=== PATIENT | female | born 1965 | race Caucasian/White ===

== ENCOUNTER → 2016-12-09 | Outpatient (CLI) | payer OTHER ==
--- NOTE | 2016-12-09 12:01 | NM ---
EXAMINATION TYPE: NM thyroid image only DATE OF EXAM: 12/09/2016 11:33 AM COMPARISON: NONE HISTORY: Nodule TECHNIQUE: After the intravenous administration of 10.94 mCi Tc 99m Sodium Pertechnetate. Images obt ained 10 minutes post injection. FINDINGS: The right thyroid lobe appears to be enlarged. There is a focal cortical defect lower pole right thyr oid lobe. Ultrasound correlation is recommended and if there is a lesion in this region consider tiss ue diagnosis. The remainder of the thyroid lobes are heterogenous. Small warm nodule suggested within the upper pole of the left thyroid lobe. IMPRESSION: 1. I cannot exclude a cold nodule lower pole right thyroid lobe. See above.
== END | disposition home or self-care (01) ==
LOC: RADNMMAIN 10:28
PROVIDERS: ATTEND Surgery
DX: R22.0 Localized swelling, mass and lump, head (principal)
CPT/HCPCS: 78013; A9512

== ENCOUNTER 2016-12-16 12:03 | Outpatient (CLI) | payer OTHER ==
[2016-12-16 13:14] VITALS: RESP 14; TEMP 97.8
[2016-12-16 14:10] VITALS: BP 144/79; PULSE 62
--- NOTE | 2016-12-16 16:45 | US ---
EXAMINATION TYPE: US FNA thyroid DATE OF EXAM: 12/16/2016 2:04 PM COMPARISON: NONE HISTORY: Thyroid nodule., Abnormal nuclear medicine thyroid scan Maximal barrier technique was utilized. After informed consent, skin overlying the right lower pole nodule corresponding to the nuclear medicine finding was localized with ultrasound and the overlying skin prepped and draped. Ultrasound was utilized using sterile technique. Lidocaine was used for loca l anesthesia. Five passes with a 25-gauge needle were made into the nodule and aspirated specimen wa s submitted to cytology. Following the procedure hemostasis achieved. No immediate complication. T he patient discharged in stable condition. IMPRESSION: STATUS POST ULTRASOUND GUIDED FINE NEEDLE ASPIRATION OF THYROID NODULE, PATHOLOGY IS PEND ING. THIS PROCEDURE WAS PERFORMED BY THE UNDERSIGNED.
== END 2016-12-16 14:12 | disposition home or self-care (01) ==
LOC: RADPROMAIN 12:03
PROVIDERS: ATTEND Surgery
DX: E07.89 Other specified disorders of thyroid (principal)
CPT/HCPCS: 10022; 76942; 84439; 84443; 88173; 88305

== ENCOUNTER → 2018-01-06 | Outpatient (CLI) | payer OTHER ==
--- NOTE | 2018-01-07 13:53 | MM ---
Reason for exam: screening (asymptomatic). Last mammogram was performed 2 years and 9 months ago. History: Family history of breast cancer in paternal aunt. Physical Findings: A clinical breast exam by your physician is recommended on an annual basis and results should be correlated with mammographic findings. MG 3D Screening Mammo W/Cad Bilateral CC and MLO view(s) were taken. Prior study comparison: March 21, 2015, bilateral MG screening mammo w CAD. July 06, 2013, mammogram, performed at [facility]. There are scattered fibroglandular densities. No significant changes when compared with prior studies. ASSESSMENT: Negative, BI-RAD 1 RECOMMENDATION: Routine screening mammogram of both breasts in 1 year.
== END ==
LOC: RADMAMWWP 06:50
PROVIDERS: ATTEND Family Medicine
DX: Z12.31 Encounter for screening mammogram for malignant neoplasm of breast (principal)
CPT/HCPCS: 77063; 77067

== ENCOUNTER → 2018-03-31 | Outpatient (CLI) | payer OTHER ==
[2018-03-31 17:40] LABS: Rheumatoid Factor <4 IU/mL (0-15)
== END | disposition home or self-care (01) ==
LOC: LABWHC1 08:17
PROVIDERS: ATTEND Otolaryngology
DX: M19.90 Unspecified osteoarthritis, unspecified site (principal); R52 Pain, unspecified; R53.83 Other fatigue
CPT/HCPCS: 36415; 86038; 86431

== ENCOUNTER → 2018-11-29 | Outpatient (CLI) | payer OTHER ==
--- NOTE | 2018-11-29 15:22 | MR ---
EXAMINATION TYPE: MR brain and iac wo/w con DATE OF EXAM: 11/29/2018 COMPARISON: NONE HISTORY: 53-year-old female Left ear ache, headache TECHNIQUE: Multiplanar, multisequence images of the brain and brainstem were acquired before and aft er administration of 6 mL IV Gadavist. Diffusion weighted imaging was performed. Additional coned-d own sequences through the internal auditory canals and posterior cranial fossa before and after IV co ntrast administration. FINDINGS: Diffusion weighted images demonstrate no evidence of an acute ischemic lesion in the brain. T2/FLAIR weighted sequences show normal matter signal abnormality. Midline structures demonstrate partially empty sella but otherwise normal morphology. The craniocerv ical junction is normal. There is mild cerebral atrophy. The ventricles are of normal caliber. There is no evidence of an acute intracranial hemorrhage, infarct, mass, mass-effect or an extra-axia l fluid collection. There is no cerebellopontine angle mass. The right AICA forms a loop partially entering the right internal auditory canal. The internal audit ory canals are otherwise symmetric. Brainstem and skull base abnormalities are not seen. Post contrast images demonstrate no evidence of pathologic enhancement in the posterior cranial joselyn a or the internal auditory canals. There is no abnormal enhancement of the labyrinths. There is a 1.0 x 1.6 cm ovoid mildly T2 hyperintense lesion within the right parapharyngeal space, re dawn to axial T2 image 2 and 3. It seems to shows some mild uniform enhancement on postcontrast images measuring nearly 2.2 cm craniocaudal, refer to coronal postcontrast image 21, series 1003. Scattered mild mucosal thickening ethmoid air cells. Globes are intact. IMPRESSION: 1. No intracranial abnormality seen. 2. No specific abnormality on acoustic MRI. 3. An ovoid enhancing lesion measuring 2.2 x 1.6 x 1.0 cm in the right parapharyngeal space could rep resent an enlarged lymph node, varix, or a schwannoma. Correlate with contrast-enhanced CT soft tissu e neck to further evaluate.
== END | disposition home or self-care (01) ==
LOC: RADMRIMAIN 10:30
PROVIDERS: ATTEND Otolaryngology
DX: R51 Headache (principal); H93.3X2 Disorders of left acoustic nerve; H91.92 Unspecified hearing loss, left ear; H93.12 Tinnitus, left ear
CPT/HCPCS: 70553; A9585

== ENCOUNTER → 2018-12-08 | Outpatient (CLI) | payer OTHER ==
--- NOTE | 2018-12-16 14:24 | MR ---
MRI CERVICAL SPINE: CLINICAL HISTORY: Cervical radiculopathy per order. Headaches with neck pain for 3+ months per patien t. TECHNIQUE: Multiplanar, multisequence imaging of the cervical spine is performed without IV contrast. COMPARISON: Outside MRI cervical spine July 06, 2015. FINDINGS: Current exam is slightly suboptimal due to artifact degradation from motion. Sagittal image s of the cervical spine show the craniocervical junction to remain within normal limits. The cervica l and upper thoracic spinal cord is normal in course, caliber, and signal. There is slight grade 1 re trolisthesis of C5 on C6 seen better on current study versus prior study. Mild to moderate disc space narrowing at this level is more prominent from prior. Otherwise the vertebral body and intravertebra l disk heights are normal. Small posterior disc herniations are effacing anterior thecal sac C5-C6 an d C6-C7 level on sagittal images. The bone marrow signal intensity is within normal limits. No suspi cious new spurring is seen. Axial images show the C2-C3 and C3-C4 levels to remain within normal limits. Axial images at C4-C5 level redemonstrate tiny central disc protrusion mildly effacing anterior theca l sac on axial image 30, bilateral neural foramina are patent. No significant change from prior. Axial images at C5-C6 level show spondylolisthesis and broad-based posterior disc protrusion with rig ht paracentral prominence axial image 22 effacing anterior thecal sac nearly up to ventral surface of spinal cord with mild right greater than left bilateral neural foraminal narrowing. Slight progressi on from prior mostly on basis of spondylolisthesis. Axial images at C6-C7 level show focal right paracentral disc protrusion near axial image 17 effacing anterior thecal sac, bilateral neural foramina are patent. Axial images at C7-T1 level are felt within normal limits. Right thyroid lobe is not visualized and may be congenitally or surgically absent. There is heterogen eity of left thyroid lobe with few small nodules, largest measures 4 to 5 mm centrally axial image 5. CT neck performed December 14 while waiting for outside comparison show similar finding absent right thyroid lobe and small central nodule left thyroid lobe. IMPRESSION: Multilevel degenerative changes worse at C5-C6 level with some progression from prior MRI noted as detailed above.
== END | disposition home or self-care (01) ==
LOC: RADMRIMAIN 06:59
PROVIDERS: ATTEND Orthopaedic Surgery
DX: M47.22 Other spondylosis with radiculopathy, cervical region (principal)
CPT/HCPCS: 72141

== ENCOUNTER → 2018-12-14 | Outpatient (CLI) | payer OTHER ==
--- NOTE | 2018-12-14 09:27 | CT ---
EXAMINATION TYPE: CT soft tissue neck w con DATE OF EXAM: 12/14/2018 9:03 AM COMPARISON: 07/05/2015 HISTORY: Right parapharyngeal , see MRI report. Right neck and head pain CT DLP: 308.3 mGycm Automated exposure control for dose reduction was used. CONTRAST: CT scan of the neck is performed following with IV Contrast, patient injected with 100 mL of Isovue 3 00. Axial images are obtained, coronal and sagittal reformatted images are reviewed. FINDINGS: There is a subcentimeter left thyroid nodule. Right lobe of thyroid is not seen. Lung apices are clear. Within the carotid space bilaterally there is evidence of adenopathy measuring short axis of 1 cm the left measuring shortness axis of less than 1 cm on the right. Additionally on the right there is a 1 cm short axis measurement soft tissue nodule in the right parapharyngeal space most likely related t o a large lymph node. Submandibular and parotid glands have a normal appearance. Intraorbital structures are symmetric. Cranial structures have a normal appearance. Oropharynx and nasopharynx are seen. Focal cords have a normal appearance. Hypertrophic and degenerative disc disease noted particularly at levels C5-C6. IMPRESSION: 1. Severe degenerative disc disease C5-C6. A calcified or ossified spur paracentrally to the right li om results in some mass effect upon the spinal canal and thecal sac. 2. Adenopathy left carotid space short axis measurement of 1 cm. Additional soft tissue nodule right parapharyngeal space measuring short axis of 1 cm also suggestive of adenopathy. The right parapharyn geal suspected lymphadenopathy appears to be retrospectively noted on the CT scan of 07/05/2015. 3. Subcentimeter left thyroid nodule. Right lobe of thyroid not visualized correlate clinically.
== END | disposition home or self-care (01) ==
LOC: RADCTMAIN 08:04
PROVIDERS: ATTEND Otolaryngology
DX: M50.322 Other cervical disc degeneration at C5-C6 level (principal); R59.0 Localized enlarged lymph nodes; J39.2 Other diseases of pharynx; E04.1 Nontoxic single thyroid nodule
CPT/HCPCS: 70491; Q9967

== ENCOUNTER → 2019-01-17 | Outpatient (CLI) | payer OTHER ==
--- NOTE | 2019-01-18 09:26 | MM ---
Reason for exam: screening (asymptomatic). Last mammogram was performed 1 year ago. History: Patient is postmenopausal. Family history of breast cancer in paternal aunt. Physical Findings: A clinical breast exam by your physician is recommended on an annual basis and results should be correlated with mammographic findings. MG 3D Screening Mammo W/Cad Bilateral CC and MLO view(s) were taken. Prior study comparison: January 06, 2018, bilateral MG 3d screening mammo w/cad. March 21, 2015, bilateral MG screening mammo w CAD. The breast tissue is heterogeneously dense. This may lower the sensitivity of mammography. There are benign appearing round dystrophic calcifications bilaterally. There is no discrete abnormality. ASSESSMENT: Negative, BI-RAD 1 RECOMMENDATION: Routine screening mammogram of both breasts in 1 year.
== END | disposition home or self-care (01) ==
LOC: RADMAMWWP 09:41
PROVIDERS: ATTEND Family Medicine
DX: Z12.31 Encounter for screening mammogram for malignant neoplasm of breast (principal)
CPT/HCPCS: 77063; 77067

== ENCOUNTER 2019-03-21 09:32 | Day surgery (SDC) | payer OTHER ==
[2019-03-16 12:48] VITALS: BMI 24.9
[~2019-03-21 09:32] MED LIST: LACTATED RINGERS 1,000 ML IV SCH; LIDOCAINE 1% 20 ML VIAL (10MG/ML) FOR IV START INTRADERMA PRN
[2019-03-21 10:04] VITALS: TEMP 97.6
[2019-03-21] MEDS ORDERED: ONDANSETRON 4 MG/2 ML VIAL IVP ONE (10:10)
[2019-03-21] MEDS ORDERED: fentaNYL (PF) 50 MCG/ML 2 ML AMP ONE (11:06)
[2019-03-21] MEDS ORDERED: MIDAZOLAM 2 MG/2 ML VIAL ONE (11:06)
[2019-03-21] MEDS ORDERED: PROPOFOL 10 MG/ML 20 ML VIAL IV ONE (11:06)
[2019-03-21] MEDS ORDERED: LIDOCAINE 1% INJ 10MG/ML (20 ML MDV) ONE (11:06)
--- NOTE | 2019-03-21 11:30 | P.PCN ---
Date of Procedure: 03/21/19 Procedure(s) Performed: Procedure: Esophagogastroduodenoscopy and biopsy. Operative diagnosis: Dysphagia. Postoperative diagnosis: 1. Sliding hiatal hernia with no definite esophagitis or complicated reflux disease. 2. Antral gastritis. 3. Multiple biopsies obtained from the duodenum, antrum and esophagus. Preparation and sedation: Was provided by anesthesia. Brief clinical history: The patient is a 54-year-old female who was evaluated in the office earlier this month regarding complaints of dysphagia. This has been progressive and at times for both solids and liquids. A modified barium swallow showed abnormal motility with no definite of stricture. The patient has chronic reflux symptoms for more than 30 years and she takes omeprazole. No alarm symptoms besides dysphagia. This evaluation is to assess for complicated reflux disease, eosinophilic esophagitis or other pathology. Procedure: With the patient on her left lateral decubitus position and after informed consent and adequate sedation, I passed the Olympus-GIF H 190 video upper endoscope through the cricopharyngeus down the esophagus. GE junction was around 38 cm from the incisors and there was a small sliding hiatal hernia measuring between 1 and 2 cm. The esophagus showed no obvious esophagitis or complicated reflux disease. The endoscope was then passed into the stomach which was insufflated with air and inspected in detail including the retroflex view of the cardia. There was mottling, erythema and few scattered erosions in the antrum but no ulcers or bleeding. Pyloric channel, duodenal bulb, post bulbar area and descending duodenum appeared within normal limits. I obtained biopsies from the duodenum, antrum and esophagus then the endoscope was withdrawn. The patient tolerated the procedure well. Plan: The patient was reassured. Will await biopsy results. Further plans will be made based on her course and biopsy results. I would consider motility studies if she continues to be symptomatic and especially if there is associated nutritional compromise. I would keep you updated on her progress.
[2019-03-21 11:37] VITALS: RESP 16
[2019-03-21 12:11] VITALS: BP 105/72; PULSE 56
== END 2019-03-21 12:15 | disposition home or self-care (01) ==
LOC: ORWHC2ENDO 09:32
DX: K29.50 Unspecified chronic gastritis without bleeding (principal); K21.0 Gastro-esophageal reflux disease with esophagitis; K44.9 Diaphragmatic hernia without obstruction or gangrene; E89.0 Postprocedural hypothyroidism
CPT/HCPCS: 88305; 43239; J2250; J2405; J2001; J3010; J2704

== ENCOUNTER → 2020-07-24 | Outpatient (CLI) | payer BC ==
--- NOTE | 2020-07-24 10:02 | US ---
EXAMINATION TYPE: US thyroid st tissue head/neck DATE OF EXAM: 07/24/2020 COMPARISON: Ultrasound December 16, 2016. CT neck December 14, 2018. CLINICAL HISTORY: E04.1 Thyroid nodule. rt thyroidectomy, difficulty swallowing GLAND SIZE: Right Lobe: surgically absent Left Lobe: 5.1 x 1.6 x 1.6 cm Overall Parenchyma: heterogeneous Isthmus Thickness: 0.3 cm NODULES RIGHT: surgically absent with no obvious residual tissue seen LEFT: # of nodules measured on left: multiple, measured 3 largest solid 1. 0.8 X 0.8 x 0.7 cm hypoechoic solid nodule at the mid pole with well-defined margins. This nodul e is wider than tall and shows intranodular vascularity. Prior size: no previous here 2. 1.1 X 0.7 x 0.4 cm hypoechoic solid nodule at the mid pole with well-defined margins. This nodul e is wider than tall and shows intranodular vascularity. Prior size: no previous here 3. 0.9 X 0.6 x 0.5 cm hypoechoic solid nodule at the medial portion with well-defined margins. This nodule is wider than tall and shows intranodular vascularity. Prior size: no previous here ISTHMUS: # of nodules measured in the isthmus: 0 Bilateral neck scanned, no evidence of lymphadenopathy. Slightly heterogeneous normal sized left thyroid lobe with 3 small solid nodules marked by technologi st as detailed above. The largest 1.1 cm solid nodule is a TR 4 lesion moderately suspicious, follow- up at 1, 2, 3, and 5 years time is advised. IMPRESSION:
== END | disposition home or self-care (01) ==
LOC: RADUSWWP 09:01
PROVIDERS: ATTEND Otolaryngology
DX: E04.1 Nontoxic single thyroid nodule (principal); E89.0 Postprocedural hypothyroidism
CPT/HCPCS: 76536

== ENCOUNTER → 2020-08-31 | Outpatient (CLI) | payer BC ==
[2020-08-31 17:48] LABS: Progesterone 15.1 ng/mL
[2020-08-31 20:33] LABS: Scleroderma SC-70 Ab <0.2 AI
[2020-08-31 22:53] LABS: Estradiol 42.4 pg/mL; T4, Free (Free Thyroxine) 1.4 ng/dL (0.80-1.80)
[2020-08-31 22:54] LABS: Follicle Stimulating Hormone 82.7 mIU/mL
== END | disposition home or self-care (01) ==
LOC: LABWHC1 09:55
PROVIDERS: ATTEND Psychiatry & Neurology Neurology
DX: M54.2 Cervicalgia (principal); G43.909 Migraine, unspecified, not intractable, without status migrainosus; R13.10 Dysphagia, unspecified; N95.1 Menopausal and female climacteric states; E03.9 Hypothyroidism, unspecified
CPT/HCPCS: 36415; 82550; 82670; 83001; 84144; 84403; 84439; 84443; 84481; 85652; 86038; 86235

== ENCOUNTER → 2021-05-22 | Outpatient (CLI) | payer BC ==
--- NOTE | 2021-05-29 14:39 | MM ---
Reason for exam: screening (asymptomatic). Last mammogram was performed 2 years and 4 months ago. History: Patient is postmenopausal. Family history of breast cancer in paternal aunt. Took hormonal contraceptives for 1 month. Physical Findings: A clinical breast exam by your physician is recommended on an annual basis and results should be correlated with mammographic findings. MG 3D Screening Mammo W/Cad Bilateral CC and MLO view(s) were taken. Prior study comparison: January 17, 2019, bilateral MG 3d screening mammo w/cad. January 06, 2018, bilateral MG 3d screening mammo w/cad. The breast tissue is heterogeneously dense. This may lower the sensitivity of mammography. There is chronic nodularity in the left posterior upper outer quadrant. No significant changes when compared with prior studies. ASSESSMENT: Benign, BI-RAD 2 RECOMMENDATION: Routine screening mammogram of both breasts in 1 year.
== END | disposition home or self-care (01) ==
LOC: RADMAMWWP 07:57
PROVIDERS: ATTEND Obstetrics & Gynecology
DX: Z12.31 Encounter for screening mammogram for malignant neoplasm of breast (principal); Z78.0 Asymptomatic menopausal state; Z80.3 Family history of malignant neoplasm of breast
CPT/HCPCS: 77063; 77067

== ENCOUNTER 2021-06-12 12:29 | Emergency (ER) | payer BC ==
[2021-06-12] MEDS ORDERED: KETOROLAC 15 MG/ML 1 ML VIAL IM STA (12:39)
--- NOTE | 2021-06-12 13:10 | XR ---
EXAMINATION TYPE: XR hand complete RT DATE OF EXAM: 06/12/2021 CLINICAL HISTORY: Right hand pain after falling TECHNIQUE: Frontal, lateral and oblique images of the right hand are obtained. COMPARISON: None. FINDINGS: There is no acute fracture/dislocation evident in the right hand. There are a few punctate radiopaque densities overlying the thenar eminence and the thumb. Please correlate clinically. IMPRESSION: There is no acute fracture or dislocation in the right hand. There are a few punctate radiopaque densities overlying the thenar eminence and the thumb. Please cor relate clinically.
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
[2021-06-12 13:58] VITALS: BP 110/70; PULSE 72; RESP 16; TEMP 98.2
== END 2021-06-12 13:57 | disposition home or self-care (01) ==
LOC: EC 12:29
DX: S62.346A Nondisplaced fracture of base of fifth metacarpal bone, right hand, initial encounter for closed fracture (principal); F41.9 Anxiety disorder, unspecified; W01.0XXA Fall on same level from slipping, tripping and stumbling without subsequent striking against object, initial encounter; Y92.481 Parking lot as the place of occurrence of the external cause
CPT/HCPCS: 73130; 99284; 96372; 29125; J1885

== ENCOUNTER → 2022-04-29 | Outpatient (CLI) | payer BC ==
--- NOTE | 2022-04-29 13:56 | US ---
EXAMINATION TYPE: US thyroid st tissue head/neck DATE OF EXAM: 04/29/2022 COMPARISON: US CLINICAL HISTORY: 57-year-old female E04.1 NONTOXIC SINGLE THYROID NODULE. F/U left thyroid nodule, p revious right thyroidectomy TECHNIQUE: Multiple sonographic images of the thyroid gland are obtained. FINDINGS: GLAND SIZE: Right Lobe: Surgically absent Left Lobe: 5.6 x 1.7 x 1.9 cm Overall Parenchyma: heterogeneous Isthmus Thickness: 0.3 cm NODULES LEFT: # of nodules measured on left: 3 1. 0.9 X 0.7 x 0.9 cm, mid mid, solid or almost completely solid, hypoechoic TR 4 nodule, which is wider than tall, with ill-defined margins, without echogenic foci. Prior size: 0.8 x 0.7 x 0.8 cm 2. 1.2 X 0.5 x 0.6 cm, mid lateral, solid or almost completely solid, hypoechoic TR 4 nodule, whic h is wider than tall, with smooth margins, without echogenic foci. Prior size: 1.1 x 0.4 x 0.7 cm 3. 0.8 X 0.5 x 0.7 cm, mid medial, solid or almost completely solid, hypoechoic TR 4 nodule, which is wider than tall, with smooth margins, without echogenic foci. Prior size: 0.9 x 0.5 x 0.6 cm ISTHMUS: # of nodules measured in the isthmus: 0 Piece Cutter notes: Bilateral neck scanned, no evidence of lymphadenopathy. Multiple nodules scattered throughout left thyroid, largest 3 measured as on prior exam, appear unchanged/stable. IMPRESSION: 1. Status post right thyroidectomy. 2. A few TR4 nodules within the left lobe remain relatively unchanged, largest measuring 1.2 cm.
== END | disposition home or self-care (01) ==
LOC: RADUSWWP 06:53
PROVIDERS: ATTEND Otolaryngology
DX: E04.2 Nontoxic multinodular goiter (principal); E89.0 Postprocedural hypothyroidism
CPT/HCPCS: 76536

== ENCOUNTER 2022-11-10 00:10 | Emergency (ER) | payer BC ==
[2022-11-10 00:23] VITALS: TEMP 98
[2022-11-10] MEDS ORDERED: SODIUM CHLORIDE 0.9% 1,000 ML IV STA ×2 (00:26→01:50)
[2022-11-10] MEDS ORDERED: ONDANSETRON 4 MG/2 ML VIAL IVP STA (00:26)
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
[2022-11-10 01:06] LABS: HCT 42.4 % (34.0-46.0); MCHC 35.4 g/dL (31.0-37.0); MCV 93.2 fL (80.0-100.0); Mean Platelet Volume 7.5; Platelet Count 250 k/uL (150-450); RBC 4.54 m/uL (3.80-5.40); RDW 12.1 % (11.5-15.5)
[2022-11-10 01:17] LABS: ALT 21 U/L (4-34); AST 30 U/L (14-36); African American GFR (CKD) >90 (>60 ml/min/1.73 sqM); Albumin 4.7 g/dL (3.5-5.0); Alkaline Phosphatase 64 U/L (38-126); Anion Gap 13 mmol/L; Blood Urea Nitrogen 8 mg/dL (7-17); Calcium 8.7 mg/dL (8.4-10.2); Carbon Dioxide 18 mmol/L (22-30); Chloride 109 mmol/L (98-107); Glucose 105 mg/dL (74-99); Non-African American GFR(CKD) >90 (>60 ml/min/1.73 sqM); Potassium 3.8 mmol/L (3.5-5.1); Sodium 140 mmol/L (137-145); Total Bilirubin 0.3 mg/dL (0.2-1.3); Total Protein 7.4 g/dL (6.3-8.2)
[2022-11-10 01:20] LABS: Alcohol 213 mg/dL
[2022-11-10 01:34] LABS: Eosinophils # (M) 0.12 k/uL (0-0.7); Lymphocytes # (M) 1.68 k/uL (1.0-4.8); Monocytes # (M) 0.24 k/uL (0-1.0); Neutrophils # (M) 3.96 k/uL (1.3-7.7); Neutrophils % (M) 66 %; Nucleated Red Blood Cells 0 /100 WBC (0-0); Total Cells Counted 100
[2022-11-10 05:25] VITALS: BP 137/68; PULSE 81; RESP 15
== END 2022-11-10 05:29 | disposition home or self-care (01) ==
LOC: EC 00:10
DX: F10.929 Alcohol use, unspecified with intoxication, unspecified (principal); E07.9 Disorder of thyroid, unspecified; F41.9 Anxiety disorder, unspecified
CPT/HCPCS: 36415; 80053; 85025; 80320; 99284; 96374; 96361 ×3; J2405

== ENCOUNTER → 2024-09-23 | Outpatient (CLI) | payer BC ==
--- NOTE | 2024-09-26 07:46 | MM ---
Reason for Exam: Screening (asymptomatic). Last mammogram was performed 1 year(s) and 8 month(s) ago. Patient History: Menarche at age 13. First Full-Term at age 25. Postmenopausal. Patient has history of breast feeding. Hormonal Contraceptives for 1 month. Paternal aunt had breast cancer, age 60. Risk Values: Miranda 5 year model risk: 1.2%. NCI Lifetime model risk: 6.9%. Prior Study Comparison: 01/17/2019 Bilateral Screening Mammogram, [facility]. 05/22/2021 Bilateral Screening Mammogram, [facility]. 01/21/2023 Bilateral MG 3D screening mammo w/cad, [facility]. Tissue Density: The breasts are heterogeneously dense, which may obscure small masses. Findings: Analyzed By CAD. There is no suspicious group of microcalcifications or new suspicious mass in either breast. Overall Assessment: Benign, BI-RAD 2 Management: Screening Mammogram of both breasts in 1 year. . Patient should continue monthly self-breast exams. A clinical breast exam by your physician is recommended on an annual basis. This exam should not preclude additional follow-up of suspicious palpable abnormalities. Note on Miranda scores and lifetime risk: 1. A Miranda score greater than 3% is considered moderate risk. If this is the case, consider specialist referral to assess eligibility for a risk reducing agent. 2. If overall lifetime risk for the development of breast cancer is 20% or higher, the patient may qualify for future screening with alternating mammogram and breast MRI. [facility], , 09/26/2024 7:43 AM. Electronically signed and approved by: Stephen Olmstead M.D. [facility]
== END | disposition home or self-care (01) ==
LOC: RADMAMWWP 09-09 16:00
PROVIDERS: ATTEND Obstetrics & Gynecology
DX: Z12.31 Encounter for screening mammogram for malignant neoplasm of breast (principal); R92.333 Mammographic heterogeneous density, bilateral breasts; Z78.0 Asymptomatic menopausal state; Z80.3 Family history of malignant neoplasm of breast
CPT/HCPCS: 77063; 77067